=== PATIENT | male | born 2000 ===

== ENCOUNTER → 2024-06-04 | Outpatient (CLI) | payer OTHER ==
[2024-06-07 15:29] LABS: QUANTIFERON MITOGEN MINUS NIL 9.98 IU/mL; QUANTIFERON NIL 0.02 IU/mL
== END | disposition home or self-care (01) ==
LOC: LAB 14:24 → LAB SHORT 14:24
PROVIDERS: Chiropractor
DX: Z20.1 Contact with and (suspected) exposure to tuberculosis (principal)
CPT/HCPCS: 86480